=== PATIENT | female | born 2005 | race Two or more races ===

== ENCOUNTER 2024-09-11 13:45 | Emergency (ER) | payer OTHER ==
[~2024-09-11] VITALS: Ht 167.6 cm; Wt 59.0 kg
[2024-09-11 15:55] LABS: HEMATOCRIT 36.6 % (36.0-45.00); HEMOGLOBIN 11.7 g/dL (12.0-15.00); MEAN CELL VOLUME 80.2 fL (80.00-100.00); MEAN CORPUSCULAR HEMOGLOBIN 25.6 pg (27.00-32.0); MEAN CORPUSCULAR HGB CONC 31.9 g/dl (32.0-36.0); PLATELET COUNT 294 K/uL (150-450); RED BLOOD COUNT 4.56 M/uL (4.00-6.00); RED CELL DISTRIBUTION WIDTH 19.1 % (11.5-14.5)
[2024-09-11] MEDS ORDERED: PENICILLIN G BENZATHINE LA 1.2 MMU/2 ML DISP.SYRIN IM STA ×2 (18:18→18:21)
[2024-09-11] MEDS ORDERED: CEFTRIAXONE SODIUM 1,000 MG VIAL IM STA (18:47)
[2024-09-11] MEDS ORDERED: AMOX1TAB5 PO (19:36)
== END 2024-09-11 20:32 | disposition home or self-care (01) ==
LOC: ER 13:48
DX: J03.90 Acute tonsillitis, unspecified (principal); Z20.822 Contact with and (suspected) exposure to COVID-19
CPT/HCPCS: 36415; 96372; 99282; J0696; J3490